=== PATIENT | male | born 1960 | race Caucasian/White ===

== ENCOUNTER 2025-03-23 08:45 | Inpatient (IN) | payer MEDICARE, BC ==
[~2025-03-23] VITALS: Ht 177.8 cm; Wt 84.4 kg
[~2025-03-23 08:45] MED LIST: HYDR100E5 RC; PRED20TA PO
[2025-03-23] MEDS ORDERED: DIPHENOXYLATE HCL/ATROP SULF TABLET ONE (09:41)
[2025-03-23] MEDS: DIPHENOXYLATE HCL/ATROP SULF TABLET PO ONE (09:47)
[2025-03-23] MEDS: MESALAMINE 400 MG CAPSULE.DR PO ONE (09:47)
[2025-03-23] MEDS: HYDROCORTISONE SOD SUCCINATE 100 MG/2 ML VIAL IV ONE (09:58)
[2025-03-23] MEDS: IV NS 1000 ML 1,000 ML IV ONE (09:58)
[2025-03-23 11:05] VITALS: BP 124/74
[2025-03-23] MEDS ORDERED: REMEDY ESSENTIAL ZINC PASTE 113 GM TP PRN (12:45)
[2025-03-23] MEDS ORDERED: ONDANSETRON 4 MG/2 ML VIAL IV PRN (12:45)
[2025-03-23] MEDS: PANTOPRAZOLE SODIUM 40 MG VIAL IV SCH (13:01)
[2025-03-23] MEDS: METRONIDAZOLE 500 MG/NS 100ML 500 MG in PREMIXED 1 EACH IV SCH (13:54)
[2025-03-23] MEDS ORDERED: PRED-170 PO (14:19)
[2025-03-23] MEDS ORDERED: ZOLP5TAB2 PO (14:19)
[2025-03-23 15:40] VITALS: BP 116/75; TEMP 98.6; O2SAT 98
[2025-03-23] MEDS: IV NS 1000 ML 1,000 ML IV PRN (16:53)
[2025-03-23] MEDS: ZOLPIDEM 5 MG TABLET PO PRN (20:39)
[2025-03-23 21:50] VITALS: BP 146/84; TEMP 99.8; O2SAT 96
[2025-03-24] MEDS: ACETAMINOPHEN 325 MG TABLET PO PRN (05:24)
[2025-03-24 06:40] VITALS: BP 113/64; TEMP 98.3; O2SAT 94
[2025-03-24 07:02] LABS: PLATELET COUNT (AUTO) 471 K/uL (152-348); RED BLOOD CELL COUNT(AUTO) 3.81 MIL/uL (4.06-5.63); RED CELL DISTRIBUTION WIDTH 14.0 % (12.1-16.2); WHITE BLOOD COUNT (AUTO) 9.1 K/uL (3.6-10.2)
[2025-03-24 07:18] LABS: CREATININE 0.8 mg/dL (0.6-1.3); SODIUM SERUM 140.0 mmol/L (136-145); UREA NITROGEN, BLOOD 11.0 mg/dL (7-18)
[2025-03-24] MEDS: POTASSIUM CHLORIDE 20 MEQ POWDER PACKET PO SCH (09:24)
[2025-03-24] MEDS ORDERED: POTASSIUM CHLORIDE 20 MEQ POWDER PACKET GT SCH (09:30)
[2025-03-24 11:13] VITALS: BP 97/64; TEMP 98.5; O2SAT 97
[2025-03-24 15:39] VITALS: BP 117/66; TEMP 98.6; O2SAT 96
[2025-03-24] MEDS: SOD FERRIC GLUC COMPLX/SUCROSE 125 MG in IV NORMAL SALINE 100 ML IV SCH (17:37)
[2025-03-24] MEDS ORDERED: IOHEXOL 300MG/ML 100 ML INFUS..BTL ONE (20:27)
[2025-03-24 22:08] VITALS: BP 103/65; TEMP 98.3; O2SAT 94
[2025-03-25 04:24] LABS: *OCCULT BLOOD STOOL POSITIVE (NEGATIVE)
[2025-03-25 05:55] LABS: PLATELET COUNT (AUTO) 451 K/uL (152-348); RED BLOOD CELL COUNT(AUTO) 3.83 MIL/uL (4.06-5.63); RED CELL DISTRIBUTION WIDTH 14.0 % (12.1-16.2); WHITE BLOOD COUNT (AUTO) 10.6 K/uL (3.6-10.2)
[2025-03-25 06:08] LABS: CREATININE 0.7 mg/dL (0.6-1.3); SODIUM SERUM 138.0 mmol/L (136-145); UREA NITROGEN, BLOOD 11.0 mg/dL (7-18)
[2025-03-25 06:24] VITALS: BP 110/79; TEMP 97.5; O2SAT 95
[2025-03-25 11:36] VITALS: BP 124/75; TEMP 98; O2SAT 96
[2025-03-25] MEDS ORDERED: SOD FERRIC GLUC COMPLX/SUCROSE 125 MG in IV NORMAL SALINE 100 ML IV SCH (14:00)
[2025-03-25 16:00] VITALS: BP 106/67; TEMP 97.9; O2SAT 98
[2025-03-25 19:37] VITALS: BP 125/79; TEMP 98.2; O2SAT 96
[2025-03-26 06:09] VITALS: BP 111/71; TEMP 97.9; O2SAT 92
[2025-03-26 06:25] LABS: PLATELET COUNT (AUTO) 502 K/uL (152-348); RED BLOOD CELL COUNT(AUTO) 3.88 MIL/uL (4.06-5.63); RED CELL DISTRIBUTION WIDTH 13.9 % (12.1-16.2); WHITE BLOOD COUNT (AUTO) 9.9 K/uL (3.6-10.2)
[2025-03-26 06:39] LABS: CREATININE 0.8 mg/dL (0.6-1.3); SODIUM SERUM 141.0 mmol/L (136-145); UREA NITROGEN, BLOOD 11.0 mg/dL (7-18)
[2025-03-26] MEDS: HYDROCORTISONE RECTAL SUPP 25 MG EACH RC ONE (10:00)
[2025-03-26 11:37] VITALS: BP 137/76; TEMP 97.8; O2SAT 98
[2025-03-26] MEDS ORDERED: METR500T PO (12:57)
[2025-03-26] MEDS ORDERED: PRED50TA PO (12:57)
[2025-03-26] MEDS ORDERED: LEVO500T90 PO (12:57)
[2025-03-26] MEDS ORDERED: HYDR25SU13 RC (13:06)
== END 2025-03-26 15:30 | disposition home or self-care (01) | DRG 386 ==
LOC: ER 08:45 → TELE3 12:25 → MEDSURG3 14:31
PROVIDERS: ADMIT Nurse Practitioner Acute Care; ATTEND Nurse Practitioner Acute Care
DX: K51.911 Ulcerative colitis, unspecified with rectal bleeding (principal); E44.0 Moderate protein-calorie malnutrition; D72.829 Elevated white blood cell count, unspecified; T38.0X5A Adverse effect of glucocorticoids and synthetic analogues, initial encounter; Y92.239 Unspecified place in hospital as the place of occurrence of the external cause; E87.6 Hypokalemia; E88.09 Other disorders of plasma-protein metabolism, not elsewhere classified; K76.89 Other specified diseases of liver; D64.9 Anemia, unspecified; Z79.52 Long term (current) use of systemic steroids; Z79.899 Other long term (current) drug therapy
CPT/HCPCS: 36415; 74160; 83735; 84100; 85025; 85651; 87046; A4663; G0378; J1720; J2470; J2916; J2919; J3490; J7040; Q9967